=== PATIENT | male | born 1980 | race Caucasian/White ===

== ENCOUNTER 2018-12-07 10:17 | Inpatient (IN) | payer OTHER ==
[~2018-12-07] VITALS: Ht 190.5 cm; Wt 76.0 kg
[2018-12-07 11:47] LABS: Source, Urine Clean Catch
[2018-12-07 11:50] LABS: Bilirubin, Urine Neg (Neg); Blood, Urine 5+ (Neg); Glucose Qualitative, Urine 3+ (Neg); Ketones, Urine Neg (Neg); Leukocyte Esterase, Urine 3+ (Neg); Nitrite, Urine Neg (Neg); Protein, Urine 3+ (Neg); Urobilinogen, Urine 1+ (Normal)
[2018-12-07 11:57] LABS: Appearance, Urine Cloudy (Clear); Color, Urine Yellow (P-Yellow)
[2018-12-07 11:58] LABS: White Blood Cells, Urine TNTC /hpf (0-5)
[2018-12-07 11:59] LABS: Bacteria Many /hpf; Squamous Epithelial Cells Rare /hpf (Few)
[2018-12-07 12:27] LABS: BASOPHILS ABSOLUTE AUTO 0.04 K/mm3 (0.00-0.23); BASOPHILS PERCENT AUTO 0 % (0-2); EOSINOPHILS PERCENT AUTO 0 % (0-6); Hematocrit 34.8 % (37.0-53.0); Hemoglobin 11.2 g/dL (13.5-17.5); IMMATURE GRAN ABSOLUTE AUTO 0.13 K/mm3 (0.00-0.10); IMMATURE GRAN PERCENT AUTO 1 % (0-1); LYMPHOCYTES ABSOLUTE AUTO 1.76 K/mm3 (0.84-5.20); LYMPHOCYTES PERCENT AUTO 8 % (21-46); MONOCYTES ABSOLUTE AUTO 2.11 K/mm3 (0.16-1.47); MONOCYTES PERCENT AUTO 9 % (4-13); Mean Corpuscular HGB 30.4 pg (26.0-34.0); Mean Corpuscular HGB Conc 32.2 g/dL (31.5-36.5); Mean Corpuscular Volume 94 fL (80-100); Mean Platelet Volume 8.9 fL (9.1-12.4); NEUTROPHILS ABSOLUTE AUTO 19.04 K/mm3 (1.96-9.15); NEUTROPHILS PERCENT AUTO 83 % (41-73); Platelet Count 393 K/mm3 (150-400); RDW Coefficient Variation 12.4 % (11.7-14.2); RDW Standard Deviation 43.4 fL (35.1-46.3); Red Blood Cell Count 3.69 M/mm3 (4.30-5.90); White Blood Cell Count 23.08 K/mm3 (4.00-11.30)
[2018-12-07 12:41] LABS: Alanine Aminotransfer (ALT/SGP 41 U/L (12-78); Albumin, Blood 2.6 g/dL (3.4-5.0); Albumin/Globulin Ratio 0.5 (0.8-1.8); Alk Phos 173 U/L (50-136); Anion Gap 9 mmol/L (6-16); Aspartate Aminotrans (AST/SGOT 7 U/L (12-37); Bilirubin, Total 0.4 mg/dL (0.1-1.0); Blood Urea Nitrogen 11 mg/dL (8-24); Bun/Creatinine Ratio 8.7 (12.0-20.0); CO2, Blood 26 mmol/L (21-32); Calcium, Blood 8.9 mg/dL (8.5-10.1); Chloride, Blood 96 mmol/L (98-108); Creatinine, Blood 1.27 mg/dL (0.60-1.20); Globulin, Blood 5.5 g/dL (2.2-4.0); Glomerular Filtration Rate >60 (60-); Glucose, Blood 154 mg/dL (70-99); Sodium, Blood 131 mmol/L (136-145); Total Protein, Blood 8.1 g/dL (6.4-8.2)
[2018-12-07 16:39] LABS: Source, Urine Catheter
[2018-12-07 16:52] LABS: Appearance, Urine Hazy (Clear); Bilirubin, Urine Neg (Neg); Blood, Urine 4+ (Neg); Color, Urine Yellow (P-Yellow); Glucose Qualitative, Urine Neg (Neg); Ketones, Urine Neg (Neg); Leukocyte Esterase, Urine 3+ (Neg); Nitrite, Urine Neg (Neg); Protein, Urine 3+ (Neg); Urobilinogen, Urine NORM (Normal)
[2018-12-07 17:14] LABS: Bacteria Many /hpf; Red Blood Cells, Urine Not Seen /hpf (0-2); Squamous Epithelial Cells Few /hpf (Few); White Blood Cells, Urine 25-50 /hpf (0-5)
[2018-12-07] MEDS ORDERED: [UNRECOGNIZED DRUG - CODE] PO (18:32)
[2018-12-07] MEDS ORDERED: TRIUMEQ TABLET1 EACH PO (20:52)
--- NOTE | 2018-12-07 21:23 | NUR ---
Transfer report from [facility] in ER on PT being admitted with acute urinary retention and UTI. HE has street cath placed in ER for retention of [address] scan report. Hx of HIV with oral home med to treat rx. he is diaphoretic per report had temp 101.3 and tylenol was helpful to decrease. had toradol and antibiotic in ER. Await admission.
--- NOTE | 2018-12-08 01:17 | NUR ---
38 YEAR OLD MALE ADMITTED WITH SEPSIS AND ACUTE URINARY RETENTION. ABD CT FOUND URINARY RENTION OF 1000 ML SO HALL CATH PLACED WITH SOME RELIEF. BILAT RENAL EDEMA AND HYDRONEPHROSIS. PT HAS HX OF IV DRUG ABUSE AND STOPPED THAT DAILY USE 3 MONTHS AGO. SAID HE USED SOME DRUGS AGAIN 2 TIME ABOUT A MONTH AGO, NONE SINCE. HAD MD VISIT 1 MONTH AGO AND TOLD HE HAS EARLY EMPHYSEMA. DISCUSSED WANTING TO STOP SMOKING AND STOP DRUG USE. DENIES ETOH OR MARIJUANA USE. SMOKES AND HAS CUT WAY BACK. PT HAS KNOWN POSITIVE HIV STATUS X 15 YEARS AND NO DETECTABLE LEVEL X 4 YEARS PER REPORT. BROUGHT OWN MED TO TREAT HIV BUT NOT IN MAKED RX BOTTLE. CALLED PHARMACY AND THEY WANT ME TO SEND RX TO [facility] TO ID. CALLED DR KC ABOUT ACUTE PAIN AND SPASM OF BLADDER. FENTANYL 25 TO 50 MCG Q 4 HOUR ADDED TO TYLENOL AND TORADOL PRN RX. PYRIDIUM GIVEN WELL ANTIEMETIC. ON IV FLUIDS AND HAS NOT BEEN OUT OF BED. FEMALE FRIEND AT BEDSIDE SUPPORTIVE. PT LIVES IN [place], MOTHER MAY LIVE IN TOWN. SUPPORT OFFERED FOR CURRENT ILLNESS. USING KPAD FOR PAIN AND CHILLS.
--- NOTE | 2018-12-08 06:27 | NUR ---
DR Ryan updated on PTS co poor pain control and PT has said norco had been helpful in past for acute pain. norco 5/325 mg tabs 1 to 2 po q 6 hours prn pain rx.
[2018-12-08 06:33] LABS: BASOPHILS ABSOLUTE AUTO 0.05 K/mm3 (0.00-0.23); BASOPHILS PERCENT AUTO 0 % (0-2); EOSINOPHILS ABSOLUTE AUTO 0.03 K/mm3 (0.00-0.68); EOSINOPHILS PERCENT AUTO 0 % (0-6); Hemoglobin 6.5 g/dL (13.5-17.5); IMMATURE GRAN ABSOLUTE AUTO 0.78 K/mm3 (0.00-0.10); IMMATURE GRAN PERCENT AUTO 2 % (0-1); LYMPHOCYTES ABSOLUTE AUTO 1.58 K/mm3 (0.84-5.20); LYMPHOCYTES PERCENT AUTO 5 % (21-46); MONOCYTES ABSOLUTE AUTO 2.35 K/mm3 (0.16-1.47); MONOCYTES PERCENT AUTO 7 % (4-13); Mean Corpuscular HGB 30.2 pg (26.0-34.0); Mean Corpuscular HGB Conc 32.5 g/dL (31.5-36.5); Mean Corpuscular Volume 93 fL (80-100); Mean Platelet Volume 9.4 fL (9.1-12.4); NEUTROPHILS ABSOLUTE AUTO 27.69 K/mm3 (1.96-9.15); NEUTROPHILS PERCENT AUTO 85 % (41-73); Platelet Count 384 K/mm3 (150-400); RDW Coefficient Variation 12.7 % (11.7-14.2); RDW Standard Deviation 43.5 fL (35.1-46.3); Red Blood Cell Count 2.15 M/mm3 (4.30-5.90); White Blood Cell Count 32.48 K/mm3 (4.00-11.30)
[2018-12-08 06:44] LABS: Anion Gap 5 mmol/L (6-16); Blood Urea Nitrogen 15 mg/dL (8-24); Bun/Creatinine Ratio 11.5 (12.0-20.0); CO2, Blood 28 mmol/L (21-32); Calcium, Blood 8.2 mg/dL (8.5-10.1); Chloride, Blood 103 mmol/L (98-108); Creatinine, Blood 1.31 mg/dL (0.60-1.20); Glomerular Filtration Rate >60 (60-); Glucose, Blood 161 mg/dL (70-99); Potassium, Blood 3.8 mmol/L (3.5-5.5); Sodium, Blood 136 mmol/L (136-145)
[2018-12-08 07:02] LABS: BASOPHILS PERCENT MAN 0 % (0-2); EOSINOPHILS PERCENT MAN 0 % (0-6); LYMPHOCYTES ABSOLUTE MAN 1.29 K/mm3 (0.84-5.20); LYMPHOCYTES PERCENT MAN 4 % (21-46); MONOCYTES ABSOLUTE MAN 1.29 K/mm3 (0.16-1.47); MONOCYTES PERCENT MAN 4 % (4-13); NEUTROPHILS ABSOLUTE MAN 29.88 K/mm3 (1.96-9.15); SEG NEUTROPHILS PERCENT MAN 92 % (41-73); TOTAL CELLS COUNTED 100
[2018-12-08 10:51] LABS: Hematocrit 28.4 % (37.0-53.0); Hemoglobin 9.4 g/dL (13.5-17.5)
--- NOTE | 2018-12-08 19:00 | NUR ---
PT. HAS SLEPT MOST OF THE DAY, FRIEND BROUGHT IN FOOD FROM OUTSIDE FOR PT. NO NOTEABLE CHANGES THIS SHIFT. WAITING FOR BM TO GET A GUIAC OF PT. STOOLS. PLEASANT AND COOPERATIVE. VERY INTERESTED IN ALL HIS RESULTS.
--- NOTE | 2018-12-09 02:24 | NUR ---
PT APPEARS TO BE RECOVERING WELL TO ACUTE URINARY RETENTION uti. DENIES NEED FOR PAIN MED THIS SHIFT. REFUSED NEW BAG OF IV FLUID AT MIDNIGHT, DRINKING ORAL FLUIDS WELL. SALINE LOCKED. FLAT AFFECT, MOM AT BEDSIDE. ON OWN HIV MED 1 X DAILY WHICH HAS BEEN ID BY PHARMACY. NO DIAPHORESIS THIS SHIFT.
[2018-12-09 05:16] LABS: BASOPHILS ABSOLUTE AUTO 0.03 K/mm3 (0.00-0.23); BASOPHILS PERCENT AUTO 0 % (0-2); EOSINOPHILS ABSOLUTE AUTO 0.08 K/mm3 (0.00-0.68); EOSINOPHILS PERCENT AUTO 1 % (0-6); Hematocrit 26.8 % (37.0-53.0); Hemoglobin 8.8 g/dL (13.5-17.5); IMMATURE GRAN ABSOLUTE AUTO 0.19 K/mm3 (0.00-0.10); IMMATURE GRAN PERCENT AUTO 1 % (0-1); LYMPHOCYTES ABSOLUTE AUTO 1.56 K/mm3 (0.84-5.20); LYMPHOCYTES PERCENT AUTO 10 % (21-46); MONOCYTES ABSOLUTE AUTO 1.22 K/mm3 (0.16-1.47); MONOCYTES PERCENT AUTO 7 % (4-13); Mean Corpuscular HGB 30.4 pg (26.0-34.0); Mean Corpuscular HGB Conc 32.8 g/dL (31.5-36.5); Mean Corpuscular Volume 93 fL (80-100); Mean Platelet Volume 9.4 fL (9.1-12.4); NEUTROPHILS PERCENT AUTO 81 % (41-73); Platelet Count 323 K/mm3 (150-400); RDW Coefficient Variation 13.1 % (11.7-14.2); RDW Standard Deviation 43.9 fL (35.1-46.3); Red Blood Cell Count 2.89 M/mm3 (4.30-5.90); White Blood Cell Count 16.48 K/mm3 (4.00-11.30)
[2018-12-09 05:36] LABS: Anion Gap 9 mmol/L (6-16); Blood Urea Nitrogen 12 mg/dL (8-24); CO2, Blood 23 mmol/L (21-32); Calcium, Blood 7.9 mg/dL (8.5-10.1); Chloride, Blood 107 mmol/L (98-108); Creatinine, Blood 1.33 mg/dL (0.60-1.20); Glomerular Filtration Rate >60 (60-); Glucose, Blood 135 mg/dL (70-99); Potassium, Blood 4.2 mmol/L (3.5-5.5); Sodium, Blood 139 mmol/L (136-145)
--- NOTE | 2018-12-09 19:40 | NUR ---
PT. LAYING IN BED AFTEER EATING DINNER. PT. HAS NOT BEEN OUT OF BED ALL DAY, REFUSES. SPIKED A TEMP THIS AFTERNOON OF 102.2 AND TYLENOL GIVEN. TEMP BACK DOWN TO 98.6 IN 45 MINUTES. INFORMATION GIVEN ON PT. PORTAL SO HE CAN LOOK UP HIS RECORDS. NO OTHER NOTEABLE CHANGES
--- NOTE | 2018-12-09 19:58 | NUR ---
pt forgetful and reminded he needs to ask for prn pain meds if he is pain. he has srteet cath placed for acute urinary retention and has urine culture back showing 2 organisms. hx of staph non MRSA and has strep bovis and clebb pneu in urine culture. discussed his hx of substance abuse and positive hiv status. recent drug abuse and heavy use until 08/2018.
--- NOTE | 2018-12-09 22:34 | NUR ---
DR BELLAMY called to inform unable to collect dixie maria eugenia trachom from urine yet due to street cath in place. also micobiology in or urine. discussed coverage with pharmacy S[facility]. also that pt has t 102.2 on day shift that resolved with tylenol 650 mg oral and by 1917 t 99.3.. await return call
--- NOTE | 2018-12-10 06:04 | NUR ---
38 YEAR OLD MALE WITH SEPSIS AND URINARY RETENTION CONTINUES TO HAVE INTERMITTANT FEVERS UP TO 102.2. HE HAD UA POSITVE FOR KLEBSIELLA PNEU AND STREP BOVIS. SENSITIVITY PENDING ON ROCEPHIN. NO BOWEL MOVEMENT MEDICATED X 1 FOR VAUGE CO PAIN IN ABD AND HEAD.
[2018-12-10 10:29] LABS: RPR Reactive (Nonreactive)
[2018-12-10 12:06] LABS: % CD 4 POS. LYMPH. 33.7 % (30.8-58.5); ABSOLUTE CD 4 HELPER 539 /uL (359-1519); BASOS 0 % (Not Estab.); EOS 0 % (Not Estab.); EOS (ABSOLUTE) 0.1 x10E3/uL (0.0-0.4); HEMATOCRIT 19.9 % (37.5-51.0); HEMOGLOBIN 6.5 g/dL (13.0-17.7); IMMATURE GRANULOCYTES 0 % (Not Estab.); LYMPHS 5 % (Not Estab.); LYMPHS (ABSOLUTE) 1.6 x10E3/uL (0.7-3.1); MCH 30.2 pg (26.6-33.0); MCHC 32.7 g/dL (31.5-35.7); MCV 93 fL (79-97); MONOCYTES 7 % (Not Estab.); MONOCYTES(ABSOLUTE) 2.1 x10E3/uL (0.1-0.9); NEUTROPHILS 88 % (Not Estab.); PLATELETS 419 x10E3/uL (150-379); RBC 2.15 x10E6/uL (4.14-5.80); RDW 13.8 % (12.3-15.4)
[2018-12-10 13:27] LABS: Hematocrit 26.7 % (37.0-53.0); Hemoglobin 8.6 g/dL (13.5-17.5); Mean Corpuscular HGB 30.5 pg (26.0-34.0); Mean Corpuscular HGB Conc 32.2 g/dL (31.5-36.5); Mean Corpuscular Volume 95 fL (80-100); Mean Platelet Volume 9.2 fL (9.1-12.4); Platelet Count 388 K/mm3 (150-400); RDW Coefficient Variation 13.1 % (11.7-14.2); RDW Standard Deviation 45.4 fL (35.1-46.3); Red Blood Cell Count 2.82 M/mm3 (4.30-5.90); White Blood Cell Count 11.03 K/mm3 (4.00-11.30)
[2018-12-10 13:38] LABS: Albumin, Blood 1.6 g/dL (3.4-5.0); Anion Gap 7 mmol/L (6-16); Blood Urea Nitrogen 10 mg/dL (8-24); Bun/Creatinine Ratio 7.5 (12.0-20.0); CO2, Blood 25 mmol/L (21-32); Calcium, Blood 8.1 mg/dL (8.5-10.1); Chloride, Blood 106 mmol/L (98-108); Creatinine, Blood 1.34 mg/dL (0.60-1.20); Glomerular Filtration Rate >60 (60-); Glucose, Blood 153 mg/dL (70-99); Phosphorus, Blood 2.3 mg/dL (2.5-4.9); Potassium, Blood 3.6 mmol/L (3.5-5.5); Sodium, Blood 138 mmol/L (136-145)
--- NOTE | 2018-12-10 17:25 | NUR ---
PT IS A/OX3, COOPERATIVE, THE PT IS UP WITH ASSIST, THE PT WAS UP TODAY AND TOOK A SHOWER, THE PT WAS MEDICATED FOR PAIN WITH NORCO AND TYLENOL SO FAR TODAY, THE PT REPORTED THAT THE NORCO MADE HIM SWEAT PERFUSELY, THE PT REPORTED THAT HE ABD PAIN WELL HEADACHE, THE PT APPEARED TO BE BREATHING EASILY AT REST, FAMILY AT THE BED SIDE CALL LIGHT IN REACH, WILL CONTINUE TO MONITOR AND ASSESS FOR CHANGES
[2018-12-11 05:17] LABS: BASOPHILS ABSOLUTE AUTO 0.04 K/mm3 (0.00-0.23); BASOPHILS PERCENT AUTO 0 % (0-2); EOSINOPHILS ABSOLUTE AUTO 0.18 K/mm3 (0.00-0.68); EOSINOPHILS PERCENT AUTO 2 % (0-6); Hematocrit 30.4 % (37.0-53.0); Hemoglobin 9.6 g/dL (13.5-17.5); IMMATURE GRAN ABSOLUTE AUTO 0.05 K/mm3 (0.00-0.10); IMMATURE GRAN PERCENT AUTO 0 % (0-1); LYMPHOCYTES ABSOLUTE AUTO 1.77 K/mm3 (0.84-5.20); LYMPHOCYTES PERCENT AUTO 15 % (21-46); MONOCYTES ABSOLUTE AUTO 0.81 K/mm3 (0.16-1.47); MONOCYTES PERCENT AUTO 7 % (4-13); Mean Corpuscular HGB 30.2 pg (26.0-34.0); Mean Corpuscular HGB Conc 31.6 g/dL (31.5-36.5); Mean Corpuscular Volume 96 fL (80-100); Mean Platelet Volume 9.6 fL (9.1-12.4); NEUTROPHILS ABSOLUTE AUTO 9.04 K/mm3 (1.96-9.15); NEUTROPHILS PERCENT AUTO 76 % (41-73); Platelet Count 486 K/mm3 (150-400); RDW Coefficient Variation 12.9 % (11.7-14.2); RDW Standard Deviation 45.7 fL (35.1-46.3); Red Blood Cell Count 3.18 M/mm3 (4.30-5.90); White Blood Cell Count 11.89 K/mm3 (4.00-11.30)
[2018-12-11 05:35] LABS: Percent Saturation 13.3 % (20.0-50.0)
[2018-12-11 05:42] LABS: Albumin, Blood 1.8 g/dL (3.4-5.0); Anion Gap 8 mmol/L (6-16); Blood Urea Nitrogen 13 mg/dL (8-24); Bun/Creatinine Ratio 8.8 (12.0-20.0); CO2, Blood 28 mmol/L (21-32); Calcium, Blood 8.7 mg/dL (8.5-10.1); Chloride, Blood 104 mmol/L (98-108); Creatinine, Blood 1.47 mg/dL (0.60-1.20); Glomerular Filtration Rate 56 (60-); Glucose, Blood 92 mg/dL (70-99); Phosphorus, Blood 4.9 mg/dL (2.5-4.9); Potassium, Blood 4.4 mmol/L (3.5-5.5); Sodium, Blood 140 mmol/L (136-145)
--- NOTE | 2018-12-11 06:41 | NUR ---
*SHIFT SUMMARY* PATIENT ALERT AND ORIENTED. PT IS ANXIOUS ABOUT PAIN AND FEVER. PT WAS MEDICATED FOR PAIN AND FEVER. RECHECKED TEMPERATURE AN HOUR AFTER TYLENOL, TEMP SLIGHTLY INCREASED. ICE PACKS APPLIED TO PATIENT, ROOM TEMPERATURE DECREASED AND BLANKETS REMOVED EXCEPT SHEET. TEMPERATURE RECHECKED 30-60MINS AFTER AND TEMP DECREASED. PATIENT WAS EDUCATED ABOUT MEDICATIONS, FEVER SYMPTOMS. PT SLEPT OFF AND ON THROUGHOUT THE NIGHT. EARLY THIS AM PT REQUESTED MORE PAIN MEDICINE AND HIS FEVER WAS NOTED TO BE SLIGHTLY ELEVATING AGAIN, MEDICATED FOR FEVER WELL. FAMILY AT BEDSIDE. PT REQUESTS HIS BED BE SLIGHTLY ELEVATED FOR IT MAKES HIM ANXIOUS TO BE THAT LOW TO THE GROUND. THIS RN EXPLAINED TO PT AND FAMILY WHY WE LIKE THE BED TO BE LOW AND EDUCATED ON SAFETY. CALL LIGHT IN REACH, HALL PATENT AND DRAINING WELL.
--- NOTE | 2018-12-11 16:49 | NUR ---
PT A/OX3, COOPERATIVE, PT IS SOMULANT, THE PT APPEARS TO BE BREATHING EASILY ON RA AT REST, THE PT IS UP WITH ASSIST AND WAS UP TO THE SHOWER TODAY, THE PT WAS MEDICATED FOR PAIN X1 SO FAR THIS SHIFT, BLADDER TRAINING HAS BEEN STARTED, PTS MOTHER IS AT THE BEDSIDE, PT REPORTS PASSING GAS TODAY BUT STILL HAS NOT HAD A BM, COLACE WAS GIVEN THIS AM, MORE BOWEL CARE ORDERED FOR TONIGHT, CALL LIGHT IN REACH, WILL CONTINUE TO MONITOR AND ASSESS FOR CHANGES
[2018-12-11 18:06] LABS: HIV-1 RNA BY PCR <20 (.)
[2018-12-12 04:25] LABS: BASOPHILS ABSOLUTE AUTO 0.03 K/mm3 (0.00-0.23); BASOPHILS PERCENT AUTO 0 % (0-2); EOSINOPHILS PERCENT AUTO 3 % (0-6); Hematocrit 30.7 % (37.0-53.0); Hemoglobin 9.6 g/dL (13.5-17.5); IMMATURE GRAN ABSOLUTE AUTO 0.04 K/mm3 (0.00-0.10); IMMATURE GRAN PERCENT AUTO 1 % (0-1); LYMPHOCYTES ABSOLUTE AUTO 1.55 K/mm3 (0.84-5.20); LYMPHOCYTES PERCENT AUTO 21 % (21-46); MONOCYTES PERCENT AUTO 7 % (4-13); Mean Corpuscular HGB 29.1 pg (26.0-34.0); Mean Corpuscular HGB Conc 31.3 g/dL (31.5-36.5); Mean Platelet Volume 9.2 fL (9.1-12.4); NEUTROPHILS PERCENT AUTO 68 % (41-73); Platelet Count 509 K/mm3 (150-400); RDW Standard Deviation 44.3 fL (35.1-46.3); White Blood Cell Count 7.32 K/mm3 (4.00-11.30)
[2018-12-12 04:28] LABS: Mean Corpuscular Volume 93 fL (80-100)
[2018-12-12 04:42] LABS: Anion Gap 6 mmol/L (6-16); Blood Urea Nitrogen 20 mg/dL (8-24); Bun/Creatinine Ratio 17.1 (12.0-20.0); CO2, Blood 28 mmol/L (21-32); Calcium, Blood 8.7 mg/dL (8.5-10.1); Chloride, Blood 105 mmol/L (98-108); Creatinine, Blood 1.17 mg/dL (0.60-1.20); Glomerular Filtration Rate >60 (60-); Glucose, Blood 112 mg/dL (70-99); Potassium, Blood 4.2 mmol/L (3.5-5.5); Sodium, Blood 139 mmol/L (136-145)
--- NOTE | 2018-12-12 07:19 | NUR ---
*SHIFT SUMMARY* PT IS ALERT AND ORIENTED. PT HAD NO FEVERS THROUGHOUT THE NIGHT. PT REQUESTED ONE PAIN PILL THROUGHOUT THE NIGHT. PT SLEPT WELL THROUGHOUT THE NIGHT. NO NEW CHANGES. CALL LIGHT IN REACH. FAMILY AT BEDSIDE. HALL CATHETER PATENT AND DRAINING WELL. NO BLADDER TRAINING THROUGHOUT THE NIGHT.
--- NOTE | 2018-12-12 17:49 | NUR ---
PT IS A/OX3, COOPERATIVE, THE PT IS UP WITH MINIMAL ASSIST, TODAY THE PTS HALL CATHETER WAS DC'D, HOWEVER THE PT CONTINUED TO HAVE RETENTION AND PAIN, DINORAH DEL VALLE WAS NOTIFIED AND THE HALL CATHETER WAS REINSERTED ORDERED, THE PT WAS MEDICATED FOR PAIN X2 TODAY, THE PT APPEARS TO BE BREATHING EASILY ON RA, THE PTS MOTHER WAS AT THE BEDSIDE T/O THE DAY AND STAYS THE NIGHT WITH HIM, CALL LIGHT IN REACH, POSSIBLE DISCHARGE IN AM
--- NOTE | 2018-12-12 21:29 | NUR ---
PT STATES HE'S DOING FINE. NO NEEDS AT THIS TIME. CALL LT IN REACH.
[2018-12-13 03:12] LABS: CHLAMYDIA TRACHOMATIS, NAA Negative (Negative); NEISSERIA GONORRHOEAE, NAA Negative (Negative)
--- NOTE | 2018-12-13 04:50 | NUR ---
SHIFT SUMMARY: MEDICATED PT ONCE FOR GENERALIZED PAIN WITH GOOD RELIEF. PT RESTED WELL T/O SHIFT. HALL IN PLACE FOR URINARY RETENTION DRAINING YELLOWISH ORANGE URINE. NO ACUTE CHANGES. MOTHER AT BEDSIDE. WILL CONTINUE TO MONITOR AND PROVIDE CARE UNTIL SHIFT REPORT.
[2018-12-13 05:24] LABS: BASOPHILS ABSOLUTE AUTO 0.04 K/mm3 (0.00-0.23); BASOPHILS PERCENT AUTO 1 % (0-2); EOSINOPHILS ABSOLUTE AUTO 0.18 K/mm3 (0.00-0.68); EOSINOPHILS PERCENT AUTO 2 % (0-6); Hematocrit 31.4 % (37.0-53.0); Hemoglobin 10.1 g/dL (13.5-17.5); IMMATURE GRAN ABSOLUTE AUTO 0.05 K/mm3 (0.00-0.10); IMMATURE GRAN PERCENT AUTO 1 % (0-1); LYMPHOCYTES ABSOLUTE AUTO 1.84 K/mm3 (0.84-5.20); LYMPHOCYTES PERCENT AUTO 23 % (21-46); MONOCYTES ABSOLUTE AUTO 0.54 K/mm3 (0.16-1.47); MONOCYTES PERCENT AUTO 7 % (4-13); Mean Corpuscular HGB 30.5 pg (26.0-34.0); Mean Corpuscular HGB Conc 32.2 g/dL (31.5-36.5); Mean Corpuscular Volume 95 fL (80-100); Mean Platelet Volume 9.1 fL (9.1-12.4); NEUTROPHILS ABSOLUTE AUTO 5.43 K/mm3 (1.96-9.15); NEUTROPHILS PERCENT AUTO 67 % (41-73); Platelet Count 552 K/mm3 (150-400); RDW Standard Deviation 45.1 fL (35.1-46.3); Red Blood Cell Count 3.31 M/mm3 (4.30-5.90); White Blood Cell Count 8.08 K/mm3 (4.00-11.30)
--- NOTE | 2018-12-13 09:14 | NUR ---
IN TO SEE PATIENT. WILL D/C HOME TODAY WITH HALL CATH IN PLACE FOR RETENTION. LEG BAG TO BE PROVIDED. SL WITHDRAWN/DEPRESSED AFFECT THIS AM. PT STATES, "I'M YOUNG AND HAVE TO DEAL WITH THIS CATHETER AND BAD HEALTH". ENCOURAGEMENT GIVEN AND TEACHING WITH CATHETER. WILL PROVIDE A LARGER DRAINAGE BAG TOO PT PUTTING OUT LARGE AMOUNTS OF URINE.
[2018-12-13] MEDS ORDERED: HYDMOR2 PO (10:02)
[2018-12-13] MEDS ORDERED: PROBIOTIC GOLD1 EACH PO (10:03)
[2018-12-13] MEDS ORDERED: CEFU500T30 PO (10:04)
[2018-12-13] MEDS ORDERED: SENN187 PO (10:04)
[2018-12-13] MEDS ORDERED: TAMS.4ER PO (10:04)
[2018-12-13] MEDS ORDERED: FINA5 PO (10:05)
== END 2018-12-13 12:11 | disposition home or self-care (01) | DRG 974 ==
LOC: ER 10:17 → MEDS 16:22 → ENPENDDIS 12-13 09:00 → MEDS 12-13 12:11
PROVIDERS: Emergency Medicine; Hospitalist; Internal Medicine; Physician Assistant; ADMIT Internal Medicine
DX: A41.50 Gram-negative sepsis, unspecified (principal); N17.0 Acute kidney failure with tubular necrosis; B20 Human immunodeficiency virus [HIV] disease; R64 Cachexia; N10 Acute pyelonephritis; E87.1 Hypo-osmolality and hyponatremia; F17.210 Nicotine dependence, cigarettes, uncomplicated; Z68.21 Body mass index [BMI] 21.0-21.9, adult; N13.9 Obstructive and reflux uropathy, unspecified; D50.9 Iron deficiency anemia, unspecified; K59.00 Constipation, unspecified; K21.9 Gastro-esophageal reflux disease without esophagitis; E83.39 Other disorders of phosphorus metabolism; E86.0 Dehydration
CPT/HCPCS: 36415; 51702; 74176; 76700; 80048; 80053; 80069; 81001; 82607; 82728; 82746; 83540; 83550; 83605; 85014; 85018; 85025; 85027; 86361; 86592; 86593; 86780; 87040; 87077; 87086; 87186; 87491; 87536; 87591; 96365-59; 96375-59; 96376-59; 99285-25; A9270-GY; C9113; J0692; J0696; J1650; J1750; J1885; J2405; J3010; J7030; J7050; J7060; J7120